=== PATIENT | male | born 1930 | race African-American/Black ===

== ENCOUNTER 2017-12-11 09:59 | Inpatient (IN) ==
[2017-12-11] MEDS ORDERED: SODIUM CHLORIDE 0.9% 500 ML IV STA (10:55)
[2017-12-11] MEDS ORDERED: PANTOPRAZOLE 40 MG VIAL IV STA (10:55)
[2017-12-11] MEDS ORDERED: ONDANSETRON 4 MG/2 ML VIAL IV STA (10:55)
[2017-12-11 11:22] LABS: Basophils % 0.4 % (0.0-0.8); Eosinophils # 0.2 10*3/uL (0.0-0.87); Eosinophils % 2.6 % (0.00-10.9); Hematocrit 33.8 VOL% (42.0-52.0); Hemoglobin 10.3 GM/DL (14.0-18.0); Immature Granulocytes % 0.6 %; Immature Granulocytes Absolute 0.05 #; Lymphocytes % 25.5 % (21.2-54.2); Mean Corpuscular HGB Conc 30.5 GM/DL (32-36); Mean Corpuscular Hemoglobin 22 PG (27-34); Mean Corpuscular Volume 72.2 FL (87-102); Mean Platelet Volume 11.7 FL (9.6-12.0); Monocytes # 0.9 10*3/uL (0.11-0.8); Neutrophils # 4.7 10*3/uL (1.4-7.4); Neutrophils % 59.9 % (38.7-73.9); Platelet Count 132 T/CUMM (130-400); Red Blood Count 4.68 MC/CUMM (3.8-5.5); White Blood Count 7.8 T/CUMM (4-12)
[2017-12-11 11:32] LABS: PT Patient Result 10.7 SECS; Partial Thromboplastin Time 28.4 SECS (0-40)
[2017-12-11 12:24] LABS: Bilirubin,Total 0.5 MG/DL (0.2-1.0); Osmolality,Calculated 286.3 MOS/KG (273-304); Potassium 4.2 MMOL/L (3.5-5.1); Total Protein 7.8 G/DL (6.4-8.3)
[2017-12-11] MEDS ORDERED: SODIUM CHLORIDE 0.9% 1,000 ML IV STA (12:29)
[2017-12-11] MEDS ORDERED: ONDANSETRON 4 MG/2 ML VIAL IV PRN (14:15)
[2017-12-11] MEDS ORDERED: ACETAMINOPHEN 325 MG TABLET PO PRN (14:15)
[2017-12-11] MEDS: SODIUM CHLORIDE 0.9% 1,000 ML IV SCH ×2 (15:04→23:47)
[2017-12-11] MEDS ORDERED: LORATADINE 10 MG TABLET PO PRN (17:56)
[2017-12-11] MEDS ORDERED: LACTULOSE 20 GM/30 ML UDCUP PO PRN (17:56)
[2017-12-11] MEDS ORDERED: ALBUTEROL 2.5 MG/3 ML NEB RESP TX PRN (21:00)
[2017-12-11] MEDS: PANTOPRAZOLE 40 MG TABLET PO SCH (21:11)
[2017-12-11] MEDS: PREGABALIN 100 MG CAPSULE PO SCH (21:11)
[2017-12-11] MEDS: DOCUSATE SODIUM 100 MG CAPSULE PO SCH (21:11)
[2017-12-11] MEDS: ROSUVASTATIN 10 MG TABLET PO SCH (21:11)
[2017-12-11] MEDS: MELATONIN 3 MG TABLET PO SCH (21:11)
[2017-12-11] MEDS: OLOPATADINE 0.1% OPH SOLN 5 ML BOTTLE BOTH EYES SCH (21:12)
[2017-12-12 06:34] LABS: Basophils % 0.5 % (0.0-0.8); Eosinophils # 0.3 10*3/uL (0.0-0.87); Eosinophils % 5.2 % (0.00-10.9); Hematocrit 32.3 VOL% (42.0-52.0); Hemoglobin 9.7 GM/DL (14.0-18.0); Immature Granulocytes % 0.3 %; Immature Granulocytes Absolute 0.02 #; Lymphocytes % 33.4 % (21.2-54.2); Mean Corpuscular Hemoglobin 22 PG (27-34); Mean Corpuscular Volume 73.1 FL (87-102); Monocytes # 0.6 10*3/uL (0.11-0.8); Monocytes % 9.9 % (1.7-12.7); Neutrophils % 50.7 % (38.7-73.9); Platelet Count 120 T/CUMM (130-400); Red Blood Count 4.42 MC/CUMM (3.8-5.5); White Blood Count 5.9 T/CUMM (4-12)
[2017-12-12] MEDS: LEVOTHYROXINE 50 MCG TABLET PO SCH (06:34)
[2017-12-12] MEDS: SODIUM CHLORIDE 0.9% 1,000 ML IV SCH (06:42)
[2017-12-12 06:59] LABS: Band Neutrophils 1 % (0-10); Eosinophils 5 % (0-10); Lymphocytes 32 % (20-55); Platelet Estimate Adequate; Segmented Neutrophils 51 % (50-85); Total Cells Counted 100
[2017-12-12 07:00] LABS: Anisocytosis Slight; Poikilocytosis Slight
[2017-12-12] MEDS ORDERED: LISINOPRIL 5 MG TABLET PO SCH (09:00)
[2017-12-12] MEDS ORDERED: DIGOXIN 0.125 MG TABLET PO SCH (09:00)
[2017-12-12] MEDS: FUROSEMIDE 80 MG TABLET PO SCH (10:39)
[2017-12-12] MEDS: DOCUSATE SODIUM 100 MG CAPSULE PO SCH ×2 (10:39→20:45)
[2017-12-12] MEDS: FOLIC ACID 1 MG TABLET PO SCH (10:40)
[2017-12-12] MEDS: PANTOPRAZOLE 40 MG TABLET PO SCH ×3 (10:40→20:45)
[2017-12-12] MEDS: PREGABALIN 100 MG CAPSULE PO SCH ×3 (10:40→20:46)
[2017-12-12] MEDS: TAMSULOSIN 0.4 MG CAPSULE PO SCH (10:41)
[2017-12-12] MEDS: METOPROLOL SUCCINATE XL 50 MG TABLET PO SCH (10:41)
[2017-12-12] MEDS: OLOPATADINE 0.1% OPH SOLN 5 ML BOTTLE BOTH EYES SCH ×2 (10:42→20:46)
[2017-12-12 11:39] LABS: Calcium 8.1 MG/DL (8.5-10.1); Osmolality,Calculated 290.7 MOS/KG (273-304); Potassium 4.4 MMOL/L (3.5-5.1)
[2017-12-12] MEDS: MELATONIN 3 MG TABLET PO SCH (20:45)
[2017-12-12] MEDS: ASPIRIN EC 81 MG TABLET PO SCH (20:45)
[2017-12-12] MEDS: ROSUVASTATIN 10 MG TABLET PO SCH (20:46)
[2017-12-12] MEDS: LISINOPRIL 5 MG TABLET PO SCH (20:46)
[2017-12-13] MEDS: LEVOTHYROXINE 50 MCG TABLET PO SCH (06:15)
[2017-12-13 06:24] LABS: Basophils % 0.4 % (0.0-0.8); Eosinophils # 0.2 10*3/uL (0.0-0.87); Eosinophils % 3.4 % (0.00-10.9); Hematocrit 31.6 VOL% (42.0-52.0); Hemoglobin 9.5 GM/DL (14.0-18.0); Immature Granulocytes % 0.3 %; Immature Granulocytes Absolute 0.02 #; Lymphocytes # 1.9 10*3/uL (1.4-4.0); Lymphocytes % 27.8 % (21.2-54.2); Mean Corpuscular HGB Conc 30.1 GM/DL (32-36); Mean Corpuscular Hemoglobin 22 PG (27-34); Mean Corpuscular Volume 72.3 FL (87-102); Monocytes # 0.7 10*3/uL (0.11-0.8); Monocytes % 10.5 % (1.7-12.7); Neutrophils # 3.9 10*3/uL (1.4-7.4); Neutrophils % 57.6 % (38.7-73.9); Platelet Count 106 T/CUMM (130-400); Red Blood Count 4.37 MC/CUMM (3.8-5.5); Red Cell Distribution Width 14.1 % (9.3-17.3); White Blood Count 6.7 T/CUMM (4-12)
[2017-12-13 06:52] LABS: Calcium 8.4 MG/DL (8.5-10.1); Osmolality,Calculated 289.7 MOS/KG (273-304); Potassium 3.9 MMOL/L (3.5-5.1)
[2017-12-13 07:31] LABS: Platelet Estimate Decreased
[2017-12-13 07:32] LABS: Anisocytosis Slight; Microcytosis 2+
[2017-12-13] MEDS: FUROSEMIDE 80 MG TABLET PO SCH (09:46)
[2017-12-13] MEDS: METOPROLOL SUCCINATE XL 50 MG TABLET PO SCH (09:46)
[2017-12-13] MEDS: DOCUSATE SODIUM 100 MG CAPSULE PO SCH ×2 (09:46→20:47)
[2017-12-13] MEDS: PANTOPRAZOLE 40 MG TABLET PO SCH ×3 (09:46→20:48)
[2017-12-13] MEDS: LISINOPRIL 5 MG TABLET PO SCH ×2 (09:47→20:46)
[2017-12-13] MEDS: FOLIC ACID 1 MG TABLET PO SCH (09:47)
[2017-12-13] MEDS: TAMSULOSIN 0.4 MG CAPSULE PO SCH (09:47)
[2017-12-13] MEDS: OLOPATADINE 0.1% OPH SOLN 5 ML BOTTLE BOTH EYES SCH ×2 (09:47→20:47)
[2017-12-13] MEDS: PREGABALIN 100 MG CAPSULE PO SCH ×3 (09:47→20:47)
[2017-12-13] MEDS: ASPIRIN EC 81 MG TABLET PO SCH (20:47)
[2017-12-13] MEDS: ROSUVASTATIN 10 MG TABLET PO SCH (20:47)
[2017-12-13] MEDS: MELATONIN 3 MG TABLET PO SCH (20:47)
[2017-12-14] MEDS: LEVOTHYROXINE 50 MCG TABLET PO SCH (06:20)
[2017-12-14 07:31] LABS: Basophils % 0.3 % (0.0-0.8); Eosinophils # 0.2 10*3/uL (0.0-0.87); Eosinophils % 3.6 % (0.00-10.9); Hematocrit 32.4 VOL% (42.0-52.0); Hemoglobin 9.7 GM/DL (14.0-18.0); Immature Granulocytes % 0.3 %; Immature Granulocytes Absolute 0.02 #; Lymphocytes # 1.7 10*3/uL (1.4-4.0); Lymphocytes % 29.7 % (21.2-54.2); Mean Corpuscular HGB Conc 29.9 GM/DL (32-36); Mean Corpuscular Hemoglobin 22 PG (27-34); Mean Corpuscular Volume 73.8 FL (87-102); Monocytes # 0.7 10*3/uL (0.11-0.8); Monocytes % 11.4 % (1.7-12.7); Neutrophils # 3.2 10*3/uL (1.4-7.4); Neutrophils % 54.7 % (38.7-73.9); Platelet Count 124 T/CUMM (130-400); Red Blood Count 4.39 MC/CUMM (3.8-5.5); Red Cell Distribution Width 13.9 % (9.3-17.3); White Blood Count 5.8 T/CUMM (4-12)
[2017-12-14 08:04] LABS: Calcium 8.5 MG/DL (8.5-10.1); Potassium 3.8 MMOL/L (3.5-5.1)
[2017-12-14] MEDS: FUROSEMIDE 80 MG TABLET PO SCH (09:35)
[2017-12-14] MEDS: PANTOPRAZOLE 40 MG TABLET PO SCH ×3 (09:35→22:10)
[2017-12-14] MEDS: DOCUSATE SODIUM 100 MG CAPSULE PO SCH ×2 (09:35→22:09)
[2017-12-14] MEDS: OLOPATADINE 0.1% OPH SOLN 5 ML BOTTLE BOTH EYES SCH ×2 (09:35→22:08)
[2017-12-14] MEDS: PREGABALIN 100 MG CAPSULE PO SCH ×3 (09:35→22:10)
[2017-12-14] MEDS: FOLIC ACID 1 MG TABLET PO SCH (09:36)
[2017-12-14] MEDS: METOPROLOL SUCCINATE XL 50 MG TABLET PO SCH (09:36)
[2017-12-14] MEDS: LISINOPRIL 5 MG TABLET PO SCH ×2 (09:36→22:09)
[2017-12-14] MEDS: TAMSULOSIN 0.4 MG CAPSULE PO SCH (09:36)
[2017-12-14 10:40] LABS: Apearance,Urine CLEAR (Clear); Bilirubin,Urine Negative (Negative); Blood, Urine Negative (Negative); Glucose,Urine (UA) Negative (Negative); Ketones,Urine Negative (Negative); Nitrite,Urine Negative (Negative); Protein,Urine Negative; RBC,Urine <1 /HPF (0-4); Urine Color Straw (Yellow); Urine Specific Gravity 1.005 (1.001-1.035); Urine Urobilinogen < 2.0 EU/DL (0.2-1.0); WBC,Urine <1 /HPF (0-6)
[2017-12-14 14:46] LABS: Hypochromasia 1+; Microcytosis 1+; Platelet Estimate Adequate
[2017-12-14] MEDS: MELATONIN 3 MG TABLET PO SCH (22:09)
[2017-12-14] MEDS: ROSUVASTATIN 10 MG TABLET PO SCH (22:09)
[2017-12-14] MEDS: ASPIRIN EC 81 MG TABLET PO SCH (22:09)
[2017-12-15 05:19] LABS: Basophils % 0.4 % (0.0-0.8); Eosinophils # 0.2 10*3/uL (0.0-0.87); Eosinophils % 3.9 % (0.00-10.9); Hematocrit 31.5 VOL% (42.0-52.0); Hemoglobin 9.5 GM/DL (14.0-18.0); Immature Granulocytes % 0.2 %; Immature Granulocytes Absolute 0.01 #; Lymphocytes # 1.7 10*3/uL (1.4-4.0); Mean Corpuscular HGB Conc 30.2 GM/DL (32-36); Mean Corpuscular Hemoglobin 22 PG (27-34); Mean Corpuscular Volume 73.3 FL (87-102); Monocytes # 0.6 10*3/uL (0.11-0.8); Monocytes % 11.6 % (1.7-12.7); Neutrophils # 2.5 10*3/uL (1.4-7.4); Neutrophils % 49.9 % (38.7-73.9); Platelet Count 121 T/CUMM (130-400); Red Cell Distribution Width 13.9 % (9.3-17.3); White Blood Count 5.1 T/CUMM (4-12)
[2017-12-15 05:41] LABS: Hypochromasia 1+; Microcytosis 1+; Ovalocytes Slight
[2017-12-15 05:42] LABS: Platelet Estimate Adequate
[2017-12-15 05:44] LABS: Osmolality,Calculated 282.3 MOS/KG (273-304); Potassium 3.8 MMOL/L (3.5-5.1)
[2017-12-15] MEDS: LEVOTHYROXINE 50 MCG TABLET PO SCH (07:11)
[2017-12-15] MEDS: LISINOPRIL 5 MG TABLET PO SCH ×2 (09:33→22:10)
[2017-12-15] MEDS: TAMSULOSIN 0.4 MG CAPSULE PO SCH (09:33)
[2017-12-15] MEDS: PREGABALIN 100 MG CAPSULE PO SCH ×3 (09:33→22:10)
[2017-12-15] MEDS: FOLIC ACID 1 MG TABLET PO SCH (09:33)
[2017-12-15] MEDS: DOCUSATE SODIUM 100 MG CAPSULE PO SCH ×2 (09:33→22:09)
[2017-12-15] MEDS: OLOPATADINE 0.1% OPH SOLN 5 ML BOTTLE BOTH EYES SCH ×2 (09:33→22:07)
[2017-12-15] MEDS: METOPROLOL SUCCINATE XL 50 MG TABLET PO SCH ×2 (09:33→14:09)
[2017-12-15] MEDS: FUROSEMIDE 80 MG TABLET PO SCH (09:33)
[2017-12-15] MEDS: PANTOPRAZOLE 40 MG TABLET PO SCH ×2 (09:33→22:10)
[2017-12-15] MEDS ORDERED: POLYETHYLENE GLYCOL POWDER 255 GM BOTTLE PO ONE (11:00)
[2017-12-15] MEDS ORDERED: BISACODYL 5 MG TABLET PO ONE (12:00)
[2017-12-15] MEDS: MELATONIN 3 MG TABLET PO SCH (22:08)
[2017-12-15] MEDS: ASPIRIN EC 81 MG TABLET PO SCH (22:09)
[2017-12-15] MEDS: ROSUVASTATIN 10 MG TABLET PO SCH (22:10)
[2017-12-16] MEDS: LEVOTHYROXINE 50 MCG TABLET PO SCH (08:01)
[2017-12-16] MEDS: LISINOPRIL 5 MG TABLET PO SCH ×2 (08:55→21:49)
[2017-12-16] MEDS: METOPROLOL SUCCINATE XL 50 MG TABLET PO SCH (08:56)
[2017-12-16] MEDS: TAMSULOSIN 0.4 MG CAPSULE PO SCH (10:03)
[2017-12-16] MEDS: FOLIC ACID 1 MG TABLET PO SCH (10:03)
[2017-12-16] MEDS: DOCUSATE SODIUM 100 MG CAPSULE PO SCH ×2 (10:03→21:56)
[2017-12-16] MEDS: FUROSEMIDE 80 MG TABLET PO SCH (10:04)
[2017-12-16] MEDS: PANTOPRAZOLE 40 MG TABLET PO SCH ×2 (10:04→21:49)
[2017-12-16] MEDS: PREGABALIN 100 MG CAPSULE PO SCH ×3 (10:04→21:49)
[2017-12-16] MEDS ORDERED: PROPOFOL 200 MG/20 ML VIAL IV ONE (11:01)
[2017-12-16] MEDS ORDERED: LIDOCAINE 1% 5 ML VIAL ONE (11:01)
[2017-12-16] MEDS: OLOPATADINE 0.1% OPH SOLN 5 ML BOTTLE BOTH EYES SCH ×2 (11:14→21:48)
[2017-12-16] MEDS: amLODIPine 5 MG TABLET PO SCH (16:58)
[2017-12-16] MEDS ORDERED: LOPERAMIDE 2 MG CAPSULE PO PRN (17:45)
[2017-12-16] MEDS: ROSUVASTATIN 10 MG TABLET PO SCH (21:49)
[2017-12-16] MEDS: ASPIRIN EC 81 MG TABLET PO SCH (21:49)
[2017-12-16] MEDS: MELATONIN 3 MG TABLET PO SCH (21:50)
[2017-12-17] MEDS: LEVOTHYROXINE 50 MCG TABLET PO SCH (06:29)
[2017-12-17] MEDS ORDERED: METOPROLOL SUCCINATE XL 25 MG TABLET PO SCH (09:00)
[2017-12-17] MEDS: DOCUSATE SODIUM 100 MG CAPSULE PO SCH (12:15)
[2017-12-17] MEDS: FUROSEMIDE 80 MG TABLET PO SCH (12:15)
[2017-12-17] MEDS: PANTOPRAZOLE 40 MG TABLET PO SCH (12:15)
[2017-12-17] MEDS: PREGABALIN 100 MG CAPSULE PO SCH ×2 (12:16→17:08)
[2017-12-17] MEDS: FOLIC ACID 1 MG TABLET PO SCH (12:16)
[2017-12-17] MEDS: amLODIPine 5 MG TABLET PO SCH (12:16)
[2017-12-17] MEDS: LISINOPRIL 5 MG TABLET PO SCH (12:17)
[2017-12-17] MEDS: OLOPATADINE 0.1% OPH SOLN 5 ML BOTTLE BOTH EYES SCH (12:17)
[2017-12-17] MEDS: TAMSULOSIN 0.4 MG CAPSULE PO SCH (15:48)
[2017-12-17 16:35] VITALS: BP 109/41
== END 2017-12-17 16:10 | disposition home or self-care (01) | DRG 375 ==
LOC: N.ED 09:59 → SUATTDRO 12:40 → N.EDINP 12:40 → N.2W 13:27 → N.2E 16:21
PROVIDERS: ADMIT Internal Medicine; ATTEND Internal Medicine
PROC: COLONBX (2017-12-16 11:20)

== ENCOUNTER 2019-06-23 22:14 | Inpatient (IN) ==
[2019-06-23] MEDS ORDERED: FUROSEMIDE 40 MG/4 ML VIAL IV STA (23:08)
[2019-06-23] MEDS ORDERED: ONDANSETRON 4 MG/2 ML VIAL IV STA (23:08)
[2019-06-23] MEDS ORDERED: ALBUTEROL/IPRATROPIUM 3 ML NEB RESP TX STA (23:08)
[2019-06-23 23:18] LABS: Basophils % 0.2 % (0.0-0.8); Eosinophils % 0.3 % (0.00-10.9); Hematocrit 35.8 VOL% (42.0-52.0); Hemoglobin 10.8 GM/DL (14.0-18.0); Immature Granulocytes % 0.7 %; Immature Granulocytes Absolute 0.06 #; Lymphocytes # 1.2 10*3/uL (1.4-4.0); Mean Corpuscular HGB Conc 30.2 GM/DL (32-36); Mean Corpuscular Volume 72.8 FL (87-102); Monocytes % 9.9 % (1.7-12.7); Neutrophils % 74.9 % (38.7-73.9); Red Blood Count 4.92 MC/CUMM (3.8-5.5); Red Cell Distribution Width 13.9 % (9.3-17.3); White Blood Count 8.8 T/CUMM (4-12)
[2019-06-23 23:20] LABS: Platelet Count 95 T/CUMM (130-400)
[2019-06-23 23:22] LABS: PT Patient Result 10.9 SECS (9.6-12.2)
[2019-06-23 23:30] LABS: Albumin 3.5 G/DL (3.4-5.0); Bilirubin,Total 0.5 MG/DL (0.2-1.0); Calcium 8.6 MG/DL (8.5-10.1); Osmolality,Calculated 277.2 MOS/KG (273-304); Total Protein 7.1 G/DL (6.4-8.3)
[2019-06-24 00:33] LABS: Hypochromasia Slight; Ovalocytes 1+; Platelet Estimate Decreased; Polychromasia Few
[2019-06-24] MEDS ORDERED: GLUCAGON 1 MG VIAL IM PRN (01:00)
[2019-06-24] MEDS ORDERED: ACETAMINOPHEN 325 MG TABLET PO PRN (01:00)
[2019-06-24] MEDS ORDERED: DEXTROSE 50% 25 GM/50 ML SYRINGE IV PRN (01:00)
[2019-06-24] MEDS ORDERED: ONDANSETRON 4 MG/2 ML VIAL IV PRN (01:00)
[2019-06-24] MEDS ORDERED: MORPHINE 4 MG/1 ML VIAL IV PRN (01:00)
[2019-06-24] MEDS: SODIUM CHLORIDE 0.9% 1,000 ML IV SCH (01:42)
[2019-06-24] MEDS: ALBUTEROL/IPRATROPIUM 3 ML NEB RESP TX SCH ×5 (04:01→19:08)
[2019-06-24] MEDS: INSULIN REGULAR 100 UNIT/ML SUBCUT SCH ×3 (05:53→18:11)
[2019-06-24 06:06] LABS: Basophils % 0.3 % (0.0-0.8); Eosinophils # 0.1 10*3/uL (0.0-0.87); Eosinophils % 1.5 % (0.00-10.9); Hemoglobin 9.8 GM/DL (14.0-18.0); Immature Granulocytes % 0.3 %; Immature Granulocytes Absolute 0.02 #; Lymphocytes # 1.6 10*3/uL (1.4-4.0); Lymphocytes % 21.1 % (21.2-54.2); Mean Corpuscular HGB Conc 29.7 GM/DL (32-36); Mean Corpuscular Volume 72.4 FL (87-102); Monocytes % 12.6 % (1.7-12.7); Neutrophils % 64.2 % (38.7-73.9); Red Blood Count 4.56 MC/CUMM (3.8-5.5); Red Cell Distribution Width 13.9 % (9.3-17.3); White Blood Count 7.4 T/CUMM (4-12)
[2019-06-24 06:19] LABS: Platelet Count 82 T/CUMM (130-400)
[2019-06-24 06:31] LABS: Hypochromasia 1+; Ovalocytes Slight; Platelet Estimate Decreased
[2019-06-24 06:43] LABS: Albumin 3.2 G/DL (3.4-5.0); Bilirubin,Total 1.2 MG/DL (0.2-1.0); Calcium 8.8 MG/DL (8.5-10.1); Osmolality,Calculated 283.7 MOS/KG (273-304); Total Protein 6.6 G/DL (6.4-8.3)
[2019-06-24] MEDS ORDERED: NON-FORMULARY MEDICATION (Omeprazole 20 MG) PO SCH (09:00)
[2019-06-24] MEDS ORDERED: FUROSEMIDE 80 MG TABLET PO SCH (09:00)
[2019-06-24] MEDS ORDERED: PANTOPRAZOLE 40 MG VIAL IV SCH (09:00)
[2019-06-24] MEDS: OLOPATADINE 0.1% OPH SOLN 5 ML BOTTLE BOTH EYES SCH ×2 (10:05→21:45)
[2019-06-24] MEDS: FUROSEMIDE 40 MG/4 ML VIAL IV SCH ×2 (10:06→16:34)
[2019-06-24] MEDS: COLCHICINE 0.6 MG CAPSULE PO SCH ×2 (10:07→21:35)
[2019-06-24] MEDS: PREGABALIN 100 MG CAPSULE PO SCH ×3 (10:07→21:35)
[2019-06-24] MEDS: allopurinoL 100 MG TABLET PO SCH (10:08)
[2019-06-24] MEDS: TAMSULOSIN 0.4 MG CAPSULE PO SCH (10:08)
[2019-06-24] MEDS: DOCUSATE SODIUM 100 MG CAPSULE PO SCH ×2 (10:08→21:35)
[2019-06-24] MEDS: FOLIC ACID 1 MG TABLET PO SCH (10:08)
[2019-06-24] MEDS: CLOPIDOGREL 75 MG TABLET PO SCH (10:09)
[2019-06-24] MEDS: METOPROLOL SUCCINATE XL 50 MG TABLET PO SCH (10:09)
[2019-06-24] MEDS: PANTOPRAZOLE 40 MG TABLET PO SCH ×2 (10:09→16:34)
[2019-06-24] MEDS: lisinopriL 5 MG TABLET PO SCH (10:09)
[2019-06-24] MEDS ORDERED: ALBUTEROL 2.5 MG/3 ML NEB RESP TX SCH (11:00)
[2019-06-24] MEDS ORDERED: FERROUS SULFATE 325 MG TABLET PO SCH (17:00)
[2019-06-24] MEDS: FERROUS SULFATE 325 MG TABLET PO SCH (18:11)
[2019-06-24] MEDS: ASPIRIN EC 81 MG TABLET PO SCH (21:35)
[2019-06-24] MEDS: ROSUVASTATIN 10 MG TABLET PO SCH (21:36)
[2019-06-25] MEDS: INSULIN REGULAR 100 UNIT/ML SUBCUT SCH ×4 (01:26→23:26)
[2019-06-25] MEDS: ALBUTEROL/IPRATROPIUM 3 ML NEB RESP TX SCH ×6 (04:10→19:40)
[2019-06-25 06:01] LABS: Basophils % 0.5 % (0.0-0.8); Eosinophils # 0.3 10*3/uL (0.0-0.87); Eosinophils % 4.1 % (0.00-10.9); Hematocrit 30.9 VOL% (42.0-52.0); Hemoglobin 9.4 GM/DL (14.0-18.0); Immature Granulocytes % 0.4 %; Immature Granulocytes Absolute 0.03 #; Lymphocytes # 1.6 10*3/uL (1.4-4.0); Lymphocytes % 20.1 % (21.2-54.2); Mean Corpuscular HGB Conc 30.4 GM/DL (32-36); Monocytes % 13.3 % (1.7-12.7); Neutrophils % 61.6 % (38.7-73.9); Platelet Count 84 T/CUMM (130-400); Red Blood Count 4.29 MC/CUMM (3.8-5.5); White Blood Count 7.8 T/CUMM (4-12)
[2019-06-25 06:25] LABS: Eosinophils 6 % (0-10); Hypochromasia 1+; Lymphocytes 22 % (20-55); Nucleated Red Blood Cells 1 (0-5); Ovalocytes Slight; Platelet Estimate Decreased; Segmented Neutrophils 64 % (50-85); Total Cells Counted 100
[2019-06-25 06:44] LABS: Calcium 8.7 MG/DL (8.5-10.1); Osmolality,Calculated 283.5 MOS/KG (273-304)
[2019-06-25] MEDS: LEVOTHYROXINE 50 MCG TABLET PO SCH (08:51)
[2019-06-25] MEDS: PREGABALIN 100 MG CAPSULE PO SCH ×3 (08:52→22:33)
[2019-06-25] MEDS: COLCHICINE 0.6 MG CAPSULE PO SCH ×2 (08:53→22:34)
[2019-06-25] MEDS: TAMSULOSIN 0.4 MG CAPSULE PO SCH (08:53)
[2019-06-25] MEDS: LORATADINE 10 MG TABLET PO PRN (08:53)
[2019-06-25] MEDS: PANTOPRAZOLE 40 MG TABLET PO SCH ×2 (08:53→16:39)
[2019-06-25] MEDS: lisinopriL 5 MG TABLET PO SCH (08:53)
[2019-06-25] MEDS: METOPROLOL SUCCINATE XL 50 MG TABLET PO SCH (08:53)
[2019-06-25] MEDS: FERROUS SULFATE 325 MG TABLET PO SCH ×2 (08:54→16:39)
[2019-06-25] MEDS: CLOPIDOGREL 75 MG TABLET PO SCH (08:54)
[2019-06-25] MEDS: allopurinoL 100 MG TABLET PO SCH (08:54)
[2019-06-25] MEDS: DOCUSATE SODIUM 100 MG CAPSULE PO SCH ×2 (08:54→22:34)
[2019-06-25] MEDS: FUROSEMIDE 40 MG/4 ML VIAL IV SCH ×2 (08:54→16:39)
[2019-06-25] MEDS: FOLIC ACID 1 MG TABLET PO SCH (08:54)
[2019-06-25] MEDS: OLOPATADINE 0.1% OPH SOLN 5 ML BOTTLE BOTH EYES SCH ×2 (09:49→22:35)
[2019-06-25] MEDS: ROSUVASTATIN 10 MG TABLET PO SCH (22:33)
[2019-06-25] MEDS: ASPIRIN EC 81 MG TABLET PO SCH (22:33)
[2019-06-25] MEDS: MELATONIN 3 MG TABLET PO PRN (22:36)
[2019-06-26] MEDS: ALBUTEROL/IPRATROPIUM 3 ML NEB RESP TX SCH ×7 (03:05→23:40)
[2019-06-26 04:28] LABS: Basophils % 0.3 % (0.0-0.8); Eosinophils # 0.3 10*3/uL (0.0-0.87); Eosinophils % 4.1 % (0.00-10.9); Hematocrit 31.7 VOL% (42.0-52.0); Hemoglobin 9.4 GM/DL (14.0-18.0); Immature Granulocytes % 0.5 %; Immature Granulocytes Absolute 0.04 #; Lymphocytes # 1.3 10*3/uL (1.4-4.0); Lymphocytes % 17.1 % (21.2-54.2); Mean Corpuscular HGB Conc 29.7 GM/DL (32-36); Mean Corpuscular Volume 73.2 FL (87-102); Monocytes % 12.5 % (1.7-12.7); Neutrophils % 65.5 % (38.7-73.9); Platelet Count 119 T/CUMM (130-400); Red Blood Count 4.33 MC/CUMM (3.8-5.5); Red Cell Distribution Width 13.9 % (9.3-17.3); White Blood Count 7.8 T/CUMM (4-12)
[2019-06-26 05:04] LABS: Calcium 8.8 MG/DL (8.5-10.1); Osmolality,Calculated 283.7 MOS/KG (273-304)
[2019-06-26] MEDS: LEVOTHYROXINE 50 MCG TABLET PO SCH (05:41)
[2019-06-26] MEDS: INSULIN REGULAR 100 UNIT/ML SUBCUT SCH ×4 (05:44→18:21)
[2019-06-26 06:01] LABS: Anisocytosis 1+; Hypochromasia 1+; Platelet Estimate Adequate
[2019-06-26] MEDS: CLOPIDOGREL 75 MG TABLET PO SCH (09:44)
[2019-06-26] MEDS: allopurinoL 100 MG TABLET PO SCH (09:44)
[2019-06-26] MEDS: DOCUSATE SODIUM 100 MG CAPSULE PO SCH ×2 (09:44→21:43)
[2019-06-26] MEDS: PREGABALIN 100 MG CAPSULE PO SCH ×3 (09:44→21:42)
[2019-06-26] MEDS: FOLIC ACID 1 MG TABLET PO SCH (09:44)
[2019-06-26] MEDS: LORATADINE 10 MG TABLET PO PRN (09:44)
[2019-06-26] MEDS: PANTOPRAZOLE 40 MG TABLET PO SCH ×2 (09:44→16:20)
[2019-06-26] MEDS: METOPROLOL SUCCINATE XL 50 MG TABLET PO SCH (09:44)
[2019-06-26] MEDS: COLCHICINE 0.6 MG CAPSULE PO SCH ×2 (09:44→21:42)
[2019-06-26] MEDS: TAMSULOSIN 0.4 MG CAPSULE PO SCH (09:44)
[2019-06-26] MEDS: FERROUS SULFATE 325 MG TABLET PO SCH ×2 (09:44→16:20)
[2019-06-26] MEDS: lisinopriL 5 MG TABLET PO SCH (09:44)
[2019-06-26] MEDS: FUROSEMIDE 40 MG/4 ML VIAL IV SCH ×2 (09:45→16:20)
[2019-06-26] MEDS: OLOPATADINE 0.1% OPH SOLN 5 ML BOTTLE BOTH EYES SCH ×2 (09:45→21:43)
[2019-06-26] MEDS: SODIUM CHLORIDE 0.9% 1,000 ML IV SCH (12:53)
[2019-06-26] MEDS: ROSUVASTATIN 10 MG TABLET PO SCH (21:42)
[2019-06-26] MEDS: MELATONIN 3 MG TABLET PO PRN (21:42)
[2019-06-26] MEDS: ASPIRIN EC 81 MG TABLET PO SCH (21:43)
[2019-06-27] MEDS: INSULIN REGULAR 100 UNIT/ML SUBCUT SCH ×4 (01:00→17:35)
[2019-06-27] MEDS: SODIUM CHLORIDE 0.9% 1,000 ML IV SCH (01:03)
[2019-06-27] MEDS: ALBUTEROL/IPRATROPIUM 3 ML NEB RESP TX SCH ×6 (03:30→22:30)
[2019-06-27 05:13] LABS: Basophils % 0.3 % (0.0-0.8); Eosinophils # 0.3 10*3/uL (0.0-0.87); Eosinophils % 4.5 % (0.00-10.9); Hematocrit 32.1 VOL% (42.0-52.0); Hemoglobin 9.5 GM/DL (14.0-18.0); Immature Granulocytes % 0.6 %; Immature Granulocytes Absolute 0.04 #; Lymphocytes # 1.2 10*3/uL (1.4-4.0); Lymphocytes % 17.5 % (21.2-54.2); Mean Corpuscular HGB Conc 29.6 GM/DL (32-36); Monocytes % 14.4 % (1.7-12.7); Neutrophils % 62.7 % (38.7-73.9); Platelet Count 115 T/CUMM (130-400); Red Blood Count 4.34 MC/CUMM (3.8-5.5); Red Cell Distribution Width 13.9 % (9.3-17.3)
[2019-06-27 05:33] LABS: Calcium 8.7 MG/DL (8.5-10.1); Osmolality,Calculated 286.4 MOS/KG (273-304)
[2019-06-27] MEDS: LEVOTHYROXINE 50 MCG TABLET PO SCH (06:16)
[2019-06-27 06:20] LABS: Platelet Estimate Decreased
[2019-06-27 06:21] LABS: Anisocytosis 1+; Hypochromasia 1+; Microcytosis 1+
[2019-06-27] MEDS ORDERED: LACTULOSE 20 GM/30 ML UDCUP PO PRN (09:20)
[2019-06-27] MEDS: lisinopriL 5 MG TABLET PO SCH (10:30)
[2019-06-27] MEDS: TAMSULOSIN 0.4 MG CAPSULE PO SCH (10:31)
[2019-06-27] MEDS: METOPROLOL SUCCINATE XL 50 MG TABLET PO SCH (10:31)
[2019-06-27] MEDS: DOCUSATE SODIUM 100 MG CAPSULE PO SCH ×2 (10:31→20:38)
[2019-06-27] MEDS: COLCHICINE 0.6 MG CAPSULE PO SCH ×2 (10:31→20:35)
[2019-06-27] MEDS: FERROUS SULFATE 325 MG TABLET PO SCH ×2 (10:31→16:36)
[2019-06-27] MEDS: CLOPIDOGREL 75 MG TABLET PO SCH (10:31)
[2019-06-27] MEDS: LORATADINE 10 MG TABLET PO PRN (10:31)
[2019-06-27] MEDS: allopurinoL 100 MG TABLET PO SCH (10:31)
[2019-06-27] MEDS: PREGABALIN 100 MG CAPSULE PO SCH ×3 (10:31→20:35)
[2019-06-27] MEDS: PANTOPRAZOLE 40 MG TABLET PO SCH ×2 (10:32→16:36)
[2019-06-27] MEDS: FOLIC ACID 1 MG TABLET PO SCH (10:32)
[2019-06-27] MEDS: FUROSEMIDE 40 MG/4 ML VIAL IV SCH ×2 (10:32→16:36)
[2019-06-27] MEDS: OLOPATADINE 0.1% OPH SOLN 5 ML BOTTLE BOTH EYES SCH ×2 (10:39→20:36)
[2019-06-27] MEDS: MELATONIN 3 MG TABLET PO PRN (20:35)
[2019-06-27] MEDS: ASPIRIN EC 81 MG TABLET PO SCH (20:35)
[2019-06-27] MEDS: ROSUVASTATIN 10 MG TABLET PO SCH (20:36)
[2019-06-28] MEDS: INSULIN REGULAR 100 UNIT/ML SUBCUT SCH ×4 (00:24→19:05)
[2019-06-28] MEDS: ALBUTEROL/IPRATROPIUM 3 ML NEB RESP TX SCH ×5 (02:33→19:22)
[2019-06-28] MEDS: SODIUM CHLORIDE 0.9% 1,000 ML IV SCH (05:45)
[2019-06-28] MEDS: LEVOTHYROXINE 50 MCG TABLET PO SCH (05:45)
[2019-06-28] MEDS: FUROSEMIDE 40 MG/4 ML VIAL IV SCH ×3 (09:26→16:27)
[2019-06-28] MEDS: DOCUSATE SODIUM 100 MG CAPSULE PO SCH ×2 (09:27→21:21)
[2019-06-28] MEDS: PANTOPRAZOLE 40 MG TABLET PO SCH ×2 (09:28→16:27)
[2019-06-28] MEDS: allopurinoL 100 MG TABLET PO SCH (09:28)
[2019-06-28] MEDS: METOPROLOL SUCCINATE XL 50 MG TABLET PO SCH (09:28)
[2019-06-28] MEDS: COLCHICINE 0.6 MG CAPSULE PO SCH ×2 (09:28→21:21)
[2019-06-28] MEDS: CLOPIDOGREL 75 MG TABLET PO SCH (09:28)
[2019-06-28] MEDS: FERROUS SULFATE 325 MG TABLET PO SCH ×2 (09:28→16:27)
[2019-06-28] MEDS: PREGABALIN 100 MG CAPSULE PO SCH ×3 (09:28→21:22)
[2019-06-28] MEDS: lisinopriL 5 MG TABLET PO SCH (09:28)
[2019-06-28] MEDS: FOLIC ACID 1 MG TABLET PO SCH (09:28)
[2019-06-28] MEDS: TAMSULOSIN 0.4 MG CAPSULE PO SCH (09:28)
[2019-06-28] MEDS: OLOPATADINE 0.1% OPH SOLN 5 ML BOTTLE BOTH EYES SCH ×2 (09:37→21:22)
[2019-06-28] MEDS: ASPIRIN EC 81 MG TABLET PO SCH (21:21)
[2019-06-28] MEDS: ROSUVASTATIN 10 MG TABLET PO SCH (21:22)
[2019-06-29] MEDS: ALBUTEROL/IPRATROPIUM 3 ML NEB RESP TX SCH ×6 (00:03→20:00)
[2019-06-29] MEDS: INSULIN REGULAR 100 UNIT/ML SUBCUT SCH ×5 (00:43→23:50)
[2019-06-29 05:49] LABS: Basophils % 0.6 % (0.0-0.8); Eosinophils # 0.4 10*3/uL (0.0-0.87); Eosinophils % 5.4 % (0.00-10.9); Hematocrit 32.5 VOL% (42.0-52.0); Hemoglobin 9.7 GM/DL (14.0-18.0); Immature Granulocytes % 0.5 %; Immature Granulocytes Absolute 0.03 #; Lymphocytes # 1.5 10*3/uL (1.4-4.0); Lymphocytes % 22.4 % (21.2-54.2); Mean Corpuscular HGB Conc 29.8 GM/DL (32-36); Mean Corpuscular Volume 73.7 FL (87-102); Mean Platelet Volume 13.2 FL (9.6-12.0); Monocytes % 14.5 % (1.7-12.7); Neutrophils % 56.6 % (38.7-73.9); Platelet Count 108 T/CUMM (130-400); Red Blood Count 4.41 MC/CUMM (3.8-5.5); Red Cell Distribution Width 13.7 % (9.3-17.3); White Blood Count 6.6 T/CUMM (4-12)
[2019-06-29 06:07] LABS: Calcium 8.4 MG/DL (8.5-10.1); Osmolality,Calculated 288.1 MOS/KG (273-304)
[2019-06-29 06:08] LABS: Hypochromasia 1+; Microcytosis 1+; Ovalocytes Slight; Platelet Estimate Decreased
[2019-06-29] MEDS: PANTOPRAZOLE 40 MG TABLET PO SCH ×2 (06:39→17:19)
[2019-06-29] MEDS: LEVOTHYROXINE 50 MCG TABLET PO SCH (06:39)
[2019-06-29] MEDS: FERROUS SULFATE 325 MG TABLET PO SCH ×2 (09:01→17:19)
[2019-06-29] MEDS: COLCHICINE 0.6 MG CAPSULE PO SCH ×2 (09:01→20:37)
[2019-06-29] MEDS: FUROSEMIDE 40 MG/4 ML VIAL IV SCH ×2 (09:01→17:20)
[2019-06-29] MEDS: DOCUSATE SODIUM 100 MG CAPSULE PO SCH ×2 (09:01→20:40)
[2019-06-29] MEDS: allopurinoL 100 MG TABLET PO SCH (09:01)
[2019-06-29] MEDS: METOPROLOL SUCCINATE XL 50 MG TABLET PO SCH (09:02)
[2019-06-29] MEDS: PREGABALIN 100 MG CAPSULE PO SCH ×3 (09:02→20:37)
[2019-06-29] MEDS: lisinopriL 5 MG TABLET PO SCH (09:02)
[2019-06-29] MEDS: TAMSULOSIN 0.4 MG CAPSULE PO SCH (09:02)
[2019-06-29] MEDS: CLOPIDOGREL 75 MG TABLET PO SCH (09:02)
[2019-06-29] MEDS: FOLIC ACID 1 MG TABLET PO SCH (09:02)
[2019-06-29] MEDS: OLOPATADINE 0.1% OPH SOLN 5 ML BOTTLE BOTH EYES SCH ×2 (09:05→20:37)
[2019-06-29] MEDS: ASPIRIN EC 81 MG TABLET PO SCH (20:37)
[2019-06-29] MEDS: ROSUVASTATIN 10 MG TABLET PO SCH (20:37)
[2019-06-30] MEDS: ALBUTEROL/IPRATROPIUM 3 ML NEB RESP TX SCH ×4 (00:05→10:53)
[2019-06-30 05:59] LABS: Basophils % 0.6 % (0.0-0.8); Eosinophils # 0.3 10*3/uL (0.0-0.87); Eosinophils % 5.2 % (0.00-10.9); Hematocrit 32.3 VOL% (42.0-52.0); Hemoglobin 9.8 GM/DL (14.0-18.0); Immature Granulocytes % 0.5 %; Immature Granulocytes Absolute 0.03 #; Lymphocytes # 1.4 10*3/uL (1.4-4.0); Lymphocytes % 20.7 % (21.2-54.2); Mean Corpuscular HGB Conc 30.3 GM/DL (32-36); Mean Corpuscular Volume 72.4 FL (87-102); Monocytes % 13.3 % (1.7-12.7); Neutrophils % 59.7 % (38.7-73.9); Platelet Count 146 T/CUMM (130-400); Red Blood Count 4.46 MC/CUMM (3.8-5.5); Red Cell Distribution Width 13.9 % (9.3-17.3); White Blood Count 6.5 T/CUMM (4-12)
[2019-06-30 06:19] LABS: Calcium 8.3 MG/DL (8.5-10.1); Osmolality,Calculated 285.1 MOS/KG (273-304)
[2019-06-30] MEDS: INSULIN REGULAR 100 UNIT/ML SUBCUT SCH (06:28)
[2019-06-30] MEDS: LEVOTHYROXINE 50 MCG TABLET PO SCH (06:29)
[2019-06-30 06:30] LABS: Acanthocytes Few; Anisocytosis 1+; Ovalocytes 1+; Platelet Estimate Normal
[2019-06-30] MEDS: PANTOPRAZOLE 40 MG TABLET PO SCH (06:30)
[2019-06-30] MEDS: FUROSEMIDE 40 MG/4 ML VIAL IV SCH (09:36)
[2019-06-30] MEDS: PREGABALIN 100 MG CAPSULE PO SCH (09:43)
[2019-06-30] MEDS: CLOPIDOGREL 75 MG TABLET PO SCH (09:43)
[2019-06-30] MEDS: DOCUSATE SODIUM 100 MG CAPSULE PO SCH (09:43)
[2019-06-30] MEDS: FOLIC ACID 1 MG TABLET PO SCH (09:43)
[2019-06-30] MEDS: COLCHICINE 0.6 MG CAPSULE PO SCH (09:43)
[2019-06-30] MEDS: lisinopriL 5 MG TABLET PO SCH (09:43)
[2019-06-30] MEDS: FERROUS SULFATE 325 MG TABLET PO SCH (09:43)
[2019-06-30] MEDS: TAMSULOSIN 0.4 MG CAPSULE PO SCH (09:43)
[2019-06-30] MEDS: OLOPATADINE 0.1% OPH SOLN 5 ML BOTTLE BOTH EYES SCH (09:43)
[2019-06-30] MEDS: METOPROLOL SUCCINATE XL 50 MG TABLET PO SCH (09:44)
[2019-06-30] MEDS: allopurinoL 100 MG TABLET PO SCH (09:44)
[2019-06-30 10:05] VITALS: BP 112/61
== END 2019-06-30 11:35 | disposition home health service (06) | DRG 291 ==
LOC: N.EDINP 22:14 → N.ED 22:14 → N.5E 06-24 01:00
PROVIDERS: ADMIT Internal Medicine; ATTEND Internal Medicine

== ENCOUNTER 2019-07-17 19:45 | Observation (INO) ==
[2019-07-17 20:52] LABS: Basophils # 0.1 10*3/uL (0.0-0.2); Basophils % 0.6 % (0.0-0.8); Eosinophils # 0.2 10*3/uL (0.0-0.87); Eosinophils % 1.8 % (0.00-10.9); Hematocrit 38.7 VOL% (42.0-52.0); Hemoglobin 11.5 GM/DL (14.0-18.0); Immature Granulocytes % 0.5 %; Immature Granulocytes Absolute 0.04 #; Lymphocytes # 2.4 10*3/uL (1.4-4.0); Lymphocytes % 29.6 % (21.2-54.2); Mean Corpuscular HGB Conc 29.7 GM/DL (32-36); Monocytes % 10.7 % (1.7-12.7); Neutrophils % 56.8 % (38.7-73.9); Platelet Count 126 T/CUMM (130-400); Red Blood Count 5.23 MC/CUMM (3.8-5.5); White Blood Count 8.3 T/CUMM (4-12)
[2019-07-17 20:57] LABS: INR 1.1; PT Patient Result 11.6 SECS (9.8-11.9)
[2019-07-17 21:02] LABS: Albumin 3.3 G/DL (3.4-5.0); Bilirubin,Total 0.9 MG/DL (0.2-1.0); Calcium 9.1 MG/DL (8.5-10.1); Osmolality,Calculated 282.5 MOS/KG (273-304); Total Protein 7.2 G/DL (6.4-8.3)
[2019-07-17] MEDS ORDERED: FUROSEMIDE 100 MG/10 ML VIAL IV STA (21:44)
[2019-07-17] MEDS ORDERED: ONDANSETRON 4 MG/2 ML VIAL IV PRN (22:12)
[2019-07-18 06:58] LABS: Basophils % 0.6 % (0.0-0.8); Eosinophils # 0.2 10*3/uL (0.0-0.87); Eosinophils % 3.3 % (0.00-10.9); Hematocrit 35.7 VOL% (42.0-52.0); Hemoglobin 10.6 GM/DL (14.0-18.0); Immature Granulocytes % 0.6 %; Immature Granulocytes Absolute 0.04 #; Lymphocytes # 1.8 10*3/uL (1.4-4.0); Lymphocytes % 28.3 % (21.2-54.2); Mean Corpuscular HGB Conc 29.7 GM/DL (32-36); Mean Corpuscular Volume 73.5 FL (87-102); Neutrophils % 55.2 % (38.7-73.9); Platelet Count 109 T/CUMM (130-400); Red Blood Count 4.86 MC/CUMM (3.8-5.5); Red Cell Distribution Width 15.5 % (9.3-17.3); White Blood Count 6.4 T/CUMM (4-12)
[2019-07-18 07:21] LABS: Albumin 2.9 G/DL (3.4-5.0); Bilirubin,Total 0.9 MG/DL (0.2-1.0); Osmolality,Calculated 289.8 MOS/KG (273-304); Total Protein 6.3 G/DL (6.4-8.3)
[2019-07-18 07:29] LABS: Hypochromasia 1+; Microcytosis 1+; Ovalocytes Few; Target Cells Few
[2019-07-18 07:30] LABS: Platelet Estimate Decreased
[2019-07-18] MEDS ORDERED: LORATADINE 10 MG TABLET PO PRN (08:42)
[2019-07-18] MEDS ORDERED: MELATONIN 3 MG TABLET PO PRN (08:42)
[2019-07-18] MEDS ORDERED: POTASSIUM CHLORIDE RIDER 20 MEQ in PREMIX 1 EACH IV PRN (08:53)
[2019-07-18] MEDS ORDERED: FUROSEMIDE 40 MG/4 ML VIAL IV SCH (09:00)
[2019-07-18] MEDS: POTASSIUM CHLORIDE 20 MEQ TABLET PO SCH (09:28)
[2019-07-18] MEDS: FOLIC ACID 1 MG TABLET PO SCH (09:28)
[2019-07-18] MEDS: COLCHICINE 0.6 MG CAPSULE PO SCH ×2 (09:28→20:38)
[2019-07-18] MEDS: TAMSULOSIN 0.4 MG CAPSULE PO SCH (09:28)
[2019-07-18] MEDS: FERROUS SULFATE 325 MG TABLET PO SCH ×2 (09:28→20:38)
[2019-07-18] MEDS: PREGABALIN 100 MG CAPSULE PO SCH ×3 (09:29→20:38)
[2019-07-18] MEDS: CLOPIDOGREL 75 MG TABLET PO SCH (09:29)
[2019-07-18] MEDS: PANTOPRAZOLE 40 MG VIAL IV SCH (09:30)
[2019-07-18] MEDS: allopurinoL 100 MG TABLET PO SCH (09:30)
[2019-07-18] MEDS: METOPROLOL SUCCINATE XL 50 MG TABLET PO SCH (09:30)
[2019-07-18] MEDS: lisinopriL 5 MG TABLET PO SCH (09:30)
[2019-07-18] MEDS: PANTOPRAZOLE 40 MG TABLET PO SCH ×2 (10:07→20:38)
[2019-07-18] MEDS: OLOPATADINE 0.1% OPH SOLN 5 ML BOTTLE BOTH EYES SCH ×2 (10:33→20:46)
[2019-07-18] MEDS: ALBUTEROL 2.5 MG/3 ML NEB RESP TX SCH ×3 (11:05→19:10)
[2019-07-18] MEDS: ASPIRIN EC 81 MG TABLET PO SCH (20:38)
[2019-07-18] MEDS: ROSUVASTATIN 10 MG TABLET PO SCH (20:38)
[2019-07-18] MEDS: FUROSEMIDE 40 MG/4 ML VIAL IV SCH (20:39)
[2019-07-19 05:44] LABS: Basophils % 0.5 % (0.0-0.8); Eosinophils # 0.2 10*3/uL (0.0-0.87); Eosinophils % 3.6 % (0.00-10.9); Hematocrit 33.4 VOL% (42.0-52.0); Hemoglobin 9.9 GM/DL (14.0-18.0); Immature Granulocytes % 0.5 %; Immature Granulocytes Absolute 0.03 #; Lymphocytes # 1.4 10*3/uL (1.4-4.0); Lymphocytes % 21.7 % (21.2-54.2); Mean Corpuscular HGB Conc 29.6 GM/DL (32-36); Mean Corpuscular Volume 73.4 FL (87-102); Monocytes % 11.5 % (1.7-12.7); Neutrophils % 62.2 % (38.7-73.9); Red Blood Count 4.55 MC/CUMM (3.8-5.5); Red Cell Distribution Width 15.6 % (9.3-17.3); White Blood Count 6.5 T/CUMM (4-12)
[2019-07-19 06:01] LABS: Platelet Count 92 T/CUMM (130-400)
[2019-07-19] MEDS: LEVOTHYROXINE 50 MCG TABLET PO SCH (06:03)
[2019-07-19 06:09] LABS: Calcium 8.8 MG/DL (8.5-10.1); Microcytosis 1+; Ovalocytes Few; Polychromasia Slight
[2019-07-19 06:10] LABS: Anisocytosis 1+; Hypochromasia 2+; Platelet Estimate Decreased; Target Cells Few
[2019-07-19] MEDS: ALBUTEROL 2.5 MG/3 ML NEB RESP TX SCH ×4 (08:27→19:31)
[2019-07-19] MEDS: PREGABALIN 100 MG CAPSULE PO SCH ×3 (09:28→20:43)
[2019-07-19] MEDS: PANTOPRAZOLE 40 MG VIAL IV SCH (09:29)
[2019-07-19] MEDS: OLOPATADINE 0.1% OPH SOLN 5 ML BOTTLE BOTH EYES SCH ×2 (09:29→20:44)
[2019-07-19] MEDS: COLCHICINE 0.6 MG CAPSULE PO SCH ×2 (09:30→20:43)
[2019-07-19] MEDS: TAMSULOSIN 0.4 MG CAPSULE PO SCH (09:30)
[2019-07-19] MEDS: CLOPIDOGREL 75 MG TABLET PO SCH (09:30)
[2019-07-19] MEDS: POTASSIUM CHLORIDE 20 MEQ TABLET PO SCH (09:30)
[2019-07-19] MEDS: FERROUS SULFATE 325 MG TABLET PO SCH ×2 (09:31→20:43)
[2019-07-19] MEDS: METOPROLOL SUCCINATE XL 50 MG TABLET PO SCH (09:31)
[2019-07-19] MEDS: FOLIC ACID 1 MG TABLET PO SCH (09:31)
[2019-07-19] MEDS: FUROSEMIDE 40 MG/4 ML VIAL IV SCH ×2 (09:31→20:49)
[2019-07-19] MEDS: allopurinoL 100 MG TABLET PO SCH (09:32)
[2019-07-19] MEDS: lisinopriL 5 MG TABLET PO SCH (09:32)
[2019-07-19] MEDS: PANTOPRAZOLE 40 MG TABLET PO SCH ×2 (09:32→20:43)
[2019-07-19] MEDS: ISOSORBIDE DINITRATE 10 MG TABLET PO SCH ×2 (14:18→20:43)
[2019-07-19] MEDS: hydrALAZINE 10 MG TABLET PO SCH ×2 (14:18→20:51)
[2019-07-19] MEDS: ROSUVASTATIN 10 MG TABLET PO SCH (20:43)
[2019-07-19] MEDS: ASPIRIN EC 81 MG TABLET PO SCH (20:43)
[2019-07-20 05:46] LABS: Basophils % 0.5 % (0.0-0.8); Eosinophils # 0.2 10*3/uL (0.0-0.87); Eosinophils % 3.5 % (0.00-10.9); Hematocrit 33.2 VOL% (42.0-52.0); Immature Granulocytes % 0.3 %; Immature Granulocytes Absolute 0.02 #; Lymphocytes # 1.6 10*3/uL (1.4-4.0); Mean Corpuscular HGB Conc 30.1 GM/DL (32-36); Mean Corpuscular Volume 72.2 FL (87-102); Monocytes % 10.9 % (1.7-12.7); Neutrophils % 60.8 % (38.7-73.9); Red Cell Distribution Width 15.2 % (9.3-17.3); White Blood Count 6.5 T/CUMM (4-12)
[2019-07-20 05:47] LABS: Platelet Count 72 T/CUMM (130-400)
[2019-07-20 06:09] LABS: Calcium 8.6 MG/DL (8.5-10.1); Osmolality,Calculated 281.4 MOS/KG (273-304)
[2019-07-20 06:12] LABS: Hypochromasia 1+; Ovalocytes Slight; Platelet Estimate Decreased
[2019-07-20 06:13] LABS: Microcytosis Slight
[2019-07-20] MEDS: LEVOTHYROXINE 50 MCG TABLET PO SCH (06:23)
[2019-07-20] MEDS: ACETAMINOPHEN 325 MG TABLET PO PRN (06:23)
[2019-07-20] MEDS: ALBUTEROL 2.5 MG/3 ML NEB RESP TX SCH ×4 (07:34→19:00)
[2019-07-20] MEDS: ISOSORBIDE DINITRATE 10 MG TABLET PO SCH (08:38)
[2019-07-20] MEDS: PANTOPRAZOLE 40 MG VIAL IV SCH (08:38)
[2019-07-20] MEDS: POTASSIUM CHLORIDE 20 MEQ TABLET PO SCH (08:39)
[2019-07-20] MEDS: CLOPIDOGREL 75 MG TABLET PO SCH (08:39)
[2019-07-20] MEDS: COLCHICINE 0.6 MG CAPSULE PO SCH ×2 (08:39→21:33)
[2019-07-20] MEDS: FERROUS SULFATE 325 MG TABLET PO SCH ×2 (08:39→21:33)
[2019-07-20] MEDS: PREGABALIN 100 MG CAPSULE PO SCH ×3 (08:39→21:33)
[2019-07-20] MEDS: FOLIC ACID 1 MG TABLET PO SCH (08:40)
[2019-07-20] MEDS: FUROSEMIDE 40 MG/4 ML VIAL IV SCH ×2 (08:40→21:34)
[2019-07-20] MEDS: allopurinoL 100 MG TABLET PO SCH (08:41)
[2019-07-20] MEDS: TAMSULOSIN 0.4 MG CAPSULE PO SCH (08:41)
[2019-07-20] MEDS: PANTOPRAZOLE 40 MG TABLET PO SCH ×2 (08:49→21:33)
[2019-07-20] MEDS: OLOPATADINE 0.1% OPH SOLN 5 ML BOTTLE BOTH EYES SCH ×2 (08:49→21:34)
[2019-07-20] MEDS: hydrALAZINE 10 MG TABLET PO SCH (08:49)
[2019-07-20] MEDS: METOPROLOL SUCCINATE XL 50 MG TABLET PO SCH (08:49)
[2019-07-20] MEDS: SACUBITRIL/VALSARTAN 49-51 MG TABLET PO SCH (14:32)
[2019-07-20] MEDS: ROSUVASTATIN 10 MG TABLET PO SCH (21:33)
[2019-07-20] MEDS: ASPIRIN EC 81 MG TABLET PO SCH (21:33)
[2019-07-21] MEDS: ACETAMINOPHEN 325 MG TABLET PO PRN (06:24)
[2019-07-21] MEDS: LEVOTHYROXINE 50 MCG TABLET PO SCH (06:24)
[2019-07-21 06:35] LABS: Basophils % 0.8 % (0.0-0.8); Eosinophils # 0.3 10*3/uL (0.0-0.87); Eosinophils % 5.1 % (0.00-10.9); Hemoglobin 10.8 GM/DL (14.0-18.0); Immature Granulocytes % 0.4 %; Immature Granulocytes Absolute 0.02 #; Lymphocytes # 1.2 10*3/uL (1.4-4.0); Lymphocytes % 23.5 % (21.2-54.2); Mean Corpuscular Volume 72.7 FL (87-102); Monocytes % 13.7 % (1.7-12.7); Neutrophils % 56.5 % (38.7-73.9); Red Blood Count 4.95 MC/CUMM (3.8-5.5); Red Cell Distribution Width 15.3 % (9.3-17.3); White Blood Count 5.1 T/CUMM (4-12)
[2019-07-21 06:36] LABS: Platelet Count 62 T/CUMM (130-400)
[2019-07-21 06:49] LABS: Calcium 8.7 MG/DL (8.5-10.1); Osmolality,Calculated 283.3 MOS/KG (273-304)
[2019-07-21 07:00] LABS: Hypochromasia 1+; Microcytosis Slight; Ovalocytes Slight; Platelet Estimate Decreased
[2019-07-21] MEDS: ALBUTEROL 2.5 MG/3 ML NEB RESP TX SCH ×4 (07:27→19:37)
[2019-07-21] MEDS: FERROUS SULFATE 325 MG TABLET PO SCH ×2 (08:03→21:08)
[2019-07-21] MEDS: PREGABALIN 100 MG CAPSULE PO SCH ×3 (08:04→21:09)
[2019-07-21] MEDS: COLCHICINE 0.6 MG CAPSULE PO SCH ×2 (08:05→21:09)
[2019-07-21] MEDS: TAMSULOSIN 0.4 MG CAPSULE PO SCH (08:05)
[2019-07-21] MEDS: FOLIC ACID 1 MG TABLET PO SCH (08:05)
[2019-07-21] MEDS: CLOPIDOGREL 75 MG TABLET PO SCH (08:05)
[2019-07-21] MEDS: FUROSEMIDE 40 MG/4 ML VIAL IV SCH ×2 (08:05→21:10)
[2019-07-21] MEDS: POTASSIUM CHLORIDE 20 MEQ TABLET PO SCH (08:05)
[2019-07-21] MEDS: allopurinoL 100 MG TABLET PO SCH (08:05)
[2019-07-21] MEDS: PANTOPRAZOLE 40 MG TABLET PO SCH ×2 (08:05→21:09)
[2019-07-21] MEDS: SACUBITRIL/VALSARTAN 49-51 MG TABLET PO SCH ×2 (08:06→21:08)
[2019-07-21] MEDS: METOPROLOL SUCCINATE XL 50 MG TABLET PO SCH (08:12)
[2019-07-21] MEDS: OLOPATADINE 0.1% OPH SOLN 5 ML BOTTLE BOTH EYES SCH ×2 (08:18→22:07)
[2019-07-21] MEDS: PANTOPRAZOLE 40 MG VIAL IV SCH (09:19)
[2019-07-21] MEDS: ROSUVASTATIN 10 MG TABLET PO SCH (21:09)
[2019-07-21] MEDS: ASPIRIN EC 81 MG TABLET PO SCH (21:09)
[2019-07-22] MEDS: LEVOTHYROXINE 50 MCG TABLET PO SCH (06:00)
[2019-07-22 06:09] LABS: Basophils % 0.4 % (0.0-0.8); Eosinophils # 0.4 10*3/uL (0.0-0.87); Eosinophils % 5.2 % (0.00-10.9); Hematocrit 37.4 VOL% (42.0-52.0); Hemoglobin 11.3 GM/DL (14.0-18.0); Immature Granulocytes % 0.4 %; Immature Granulocytes Absolute 0.03 #; Lymphocytes # 1.4 10*3/uL (1.4-4.0); Lymphocytes % 19.5 % (21.2-54.2); Mean Corpuscular HGB Conc 30.2 GM/DL (32-36); Mean Corpuscular Volume 72.9 FL (87-102); Monocytes % 14.1 % (1.7-12.7); Neutrophils % 60.4 % (38.7-73.9); Platelet Count 66 T/CUMM (130-400); Red Blood Count 5.13 MC/CUMM (3.8-5.5); Red Cell Distribution Width 15.4 % (9.3-17.3); White Blood Count 7.1 T/CUMM (4-12)
[2019-07-22 06:50] LABS: Hypochromasia 1+; Ovalocytes Slight; Platelet Estimate Decreased
[2019-07-22] MEDS: ALBUTEROL 2.5 MG/3 ML NEB RESP TX SCH (07:42)
[2019-07-22 08:21] VITALS: BP 104/56
[2019-07-22] MEDS ORDERED: TORSEMIDE 20 MG TABLET PO SCH (09:00)
[2019-07-22] MEDS: SACUBITRIL/VALSARTAN 49-51 MG TABLET PO SCH (09:10)
[2019-07-22] MEDS: PREGABALIN 100 MG CAPSULE PO SCH (09:11)
[2019-07-22] MEDS: FERROUS SULFATE 325 MG TABLET PO SCH (09:11)
[2019-07-22] MEDS: TAMSULOSIN 0.4 MG CAPSULE PO SCH (09:11)
[2019-07-22] MEDS: METOPROLOL SUCCINATE XL 50 MG TABLET PO SCH (09:11)
[2019-07-22] MEDS: COLCHICINE 0.6 MG CAPSULE PO SCH (09:17)
[2019-07-22] MEDS: FOLIC ACID 1 MG TABLET PO SCH (09:17)
[2019-07-22] MEDS: PANTOPRAZOLE 40 MG TABLET PO SCH (09:17)
[2019-07-22] MEDS: CLOPIDOGREL 75 MG TABLET PO SCH (09:17)
[2019-07-22] MEDS: POTASSIUM CHLORIDE 20 MEQ TABLET PO SCH (09:19)
[2019-07-22] MEDS: allopurinoL 100 MG TABLET PO SCH (09:20)
[2019-07-22] MEDS: OLOPATADINE 0.1% OPH SOLN 5 ML BOTTLE BOTH EYES SCH (09:23)
== END 2019-07-22 12:30 ==
LOC: N.EDINP 19:45 → N.ED 19:45 → N.TELES 22:34
PROVIDERS: ADMIT Internal Medicine; ATTEND Internal Medicine